=== PATIENT | female | born 1985 | race African-American/Black ===

== ENCOUNTER 2019-08-20 12:44 | Observation (INO) | payer MEDICAID ==
[~2019-08-20] VITALS: Ht 160 cm; Wt 72.6 kg
[2019-08-20] MEDS ORDERED: TERBUTALINE SULFATE 1MG/ML VIAL SUBCUT PRN (15:30)
[2019-08-20 16:32] LABS: CLARITY URINE CLEAR (CLEAR); COLOR URINE YELLOW (YELLOW); KETONES URINE TRACE (NEGATIVE); LEUKOCYTE ESTERASE URINE NEGATIVE (NEGATIVE); NITRITE URINE NEGATIVE (NEGATIVE); OCCULT BLOOD URINE NEGATIVE (NEGATIVE); PROTEIN URINE 1+ (NEGATIVE); SPECIFIC GRAVITY URINE 1.032 (1.005-1.030)
[2019-08-20] MEDS ORDERED: SODIUM CHLORIDE 0.9% 1,000 ML IV SCH (18:00)
== END 2019-08-20 18:15 | disposition home or self-care (01) ==
LOC: 8 EST LDRP 12:44
PROVIDERS: ADMIT Specialist; ATTEND Specialist
DX: O46.93 Antepartum hemorrhage, unspecified, third trimester (principal); Z3A.33 33 weeks gestation of pregnancy
CPT/HCPCS: 76805; 76818; 81003; 99281; G0378; 96360; 96361

== ENCOUNTER 2019-08-28 18:10 | Observation (INO) | payer MEDICAID ==
[~2019-08-28] VITALS: Ht 160 cm; Wt 68.0 kg
== END 2019-08-28 19:40 | disposition home or self-care (01) ==
LOC: 8 EST LDRP 18:10
PROVIDERS: ADMIT Obstetrics & Gynecology; ATTEND Obstetrics & Gynecology
DX: O62.9 Abnormality of forces of labor, unspecified (principal); Z3A.34 34 weeks gestation of pregnancy
CPT/HCPCS: 99281; G0378

== ENCOUNTER 2019-09-28 18:51 | Inpatient (IN) | payer MEDICAID ==
[~2019-09-28] VITALS: Ht 160 cm; Wt 68.0 kg
[2019-09-28] MEDS ORDERED: LACTATED RINGERS 1,000 ML IV SCH (20:05)
[2019-09-28] MEDS ORDERED: CITRIC ACID/SODIUM CITRATE SOLN 30ML UDC PO NR (20:30)
[2019-09-28] MEDS ORDERED: MORPHINE SULFATE/PF 1MG/ML 10ML AMP ONE (20:46)
[2019-09-28] MEDS ORDERED: GLYCOPYRROLATE 0.2 MG/ML 2ML VIAL ONE (20:49)
[2019-09-28] MEDS ORDERED: PHENYLEPHRINE HCL 10 MG/ML 1ML (IV VIAL) IV ONE (20:49)
[2019-09-28] MEDS ORDERED: SODIUM CHLORIDE 0.9% 10ML VIAL ONE ×3 (20:50→20:57)
[2019-09-28] MEDS ORDERED: CEFAZOLIN SODIUM 1000MG/VIAL ONE (20:50)
[2019-09-28] MEDS ORDERED: EPHEDRINE SULFATE 50MG/ML VIAL ONE (20:55)
[2019-09-28] MEDS ORDERED: OXYTOCIN 10 UNITS/ML 1ML ONE ×3 (21:04→23:31)
[2019-09-28 21:31] LABS: CHLORIDE 108 mEq/L (98-107)
[2019-09-28 21:34] LABS: BASOPHILS % 0.2 % (0.0-2.0); EOSINOPHILS % 0.6 % (0.0-5.0); HEMATOCRIT. 28.6 % (36.0-48.0); HEMOGLOBIN. 9.2 g/dL (12.0-16.0); INR 0.9; LYMPHOCYTES % 16.2 % (20.0-50.0); MEAN CORPUSCULAR HEMOGLOBIN 25.7 pg (28.0-32.0); MEAN CORPUSCULAR VOLUME 79.8 fL (81.0-99.0); MEAN PLATELET VOLUME 9.8 fl (7.4-10.4); MONOCYTES % 6.2 % (2.0-8.0); NEUTROPHILS % 76.8 % (40.0-76.0); PARTIAL THROMBOPLASTIN TIME 22.4 sec (23.4-31.0); PLATELET 213 x1000/uL (130-400); PROTHROMBIN TIME 9.4 sec (9.6-11.0); RED BLOOD CELL COUNT 3.58 mill/uL (4.2-5.4); RED CELL DISTRIBUTION WIDTH 15.4 % (11.6-14.6)
[2019-09-28 21:37] LABS: CLARITY URINE CLEAR (CLEAR); COLOR URINE YELLOW (YELLOW); KETONES URINE NEGATIVE (NEGATIVE); LEUKOCYTE ESTERASE URINE TRACE (NEGATIVE); NITRITE URINE NEGATIVE (NEGATIVE); OCCULT BLOOD URINE NEGATIVE (NEGATIVE); PROTEIN URINE TRACE (NEGATIVE); SPECIFIC GRAVITY URINE 1.027 (1.005-1.030)
[2019-09-28 21:51] LABS: *AMPHETAMINES SCREEN URINE NEGATIVE (NEGATIVE); *BARBITURATES SCREEN URINE NEGATIVE (NEGATIVE)
[2019-09-28 21:52] LABS: *BENZODIAZEPINES SCREEN URINE NEGATIVE (NEGATIVE); *COCAINE SCREEN URINE NEGATIVE (NEGATIVE); METHADONE URINE SCREEN NEGATIVE (NEGATIVE); OPIATES URINE SCREEN NEGATIVE (NEGATIVE); PHENCYCLIDINE URINE SCREEN NEGATIVE (NEGATIVE)
[2019-09-28 21:53] LABS: CANNABINOID URINE SCREEN NEGATIVE (NEGATIVE)
[2019-09-28] MEDS ORDERED: DEXTROSE 50% WATER 50ML SYRINGE IV ONE ×2 (22:22→22:30)
[2019-09-28] MEDS ORDERED: METOCLOPRAMIDE HCL 10MG/2ML VIAL ONE (22:46)
[2019-09-28] MEDS ORDERED: DEXT 5%/LR + PITOCIN 20UNITS/L 1,000 ML IV SCH (23:35)
[2019-09-28] MEDS ORDERED: KETOROLAC 60MG/2ML VIAL IM ONE (23:36)
[2019-09-28] MEDS ORDERED: HYDROMORPHONE HCL/PF 2MG/ML CPJ IM PRN (23:45)
[2019-09-28] MEDS ORDERED: IBUPROFEN 800MG TABLET PO PRN (23:45)
[2019-09-28] MEDS ORDERED: BISACODYL 10MG SUPP PR PRN (23:45)
[2019-09-28] MEDS ORDERED: RHO(D) IMMUNE GLOBULIN 300 MCG/SYR IM PRN (23:45)
[2019-09-29 02:30] VITALS: BP 120/75
[2019-09-29 03:30] VITALS: BP 117/71
[2019-09-29] MEDS ORDERED: DIPHENHYDRAMINE 50MG/ML VIAL IM PRN (05:00)
[2019-09-29] MEDS ORDERED: KETOROLAC 30MG/ML VIAL IV PRN (05:00)
[2019-09-29 06:07] LABS: BASOPHILS % 0.2 % (0.0-2.0); EOSINOPHILS % 0.2 % (0.0-5.0); HEMOGLOBIN. 8.2 g/dL (12.0-16.0); LYMPHOCYTES % 12.2 % (20.0-50.0); MEAN CORPUSCULAR HEMOGLOBIN 24.9 pg (28.0-32.0); MEAN CORPUSCULAR VOLUME 79.4 fL (81.0-99.0); MEAN PLATELET VOLUME 9.5 fl (7.4-10.4); MONOCYTES % 4.4 % (2.0-8.0); PLATELET 198 x1000/uL (130-400); RED BLOOD CELL COUNT 3.27 mill/uL (4.2-5.4); RED CELL DISTRIBUTION WIDTH 15.6 % (11.6-14.6)
[2019-09-29] MEDS: FERROUS SULFATE 325MG TABLET PO SCH ×2 (07:30→21:10)
[2019-09-29 08:20] VITALS: BP 127/82
[2019-09-29] MEDS ORDERED: ONDANSETRON HCL 4MG/2ML INJ IV PRN (08:45)
[2019-09-29 16:00] VITALS: BP 127/80
[2019-09-29 19:30] VITALS: BP 117/72
[2019-09-30 04:00] VITALS: BP 122/87
[2019-09-30 12:00] VITALS: BP 119/80
[2019-09-30] MEDS: FERROUS SULFATE 325MG TABLET PO SCH ×2 (12:00→17:30)
[2019-09-30] MEDS: IBUPROFEN 400MG TABLET PO PRN ×2 (12:56→18:50)
[2019-09-30] MEDS: ACETAMINOPHEN WITH CODEINE 300/30MG TABLET PO PRN ×2 (12:56→18:50)
[2019-09-30 17:30] VITALS: BP 110/66
[2019-09-30 20:00] VITALS: BP 120/60
[2019-10-01 04:00] VITALS: BP 107/58
[2019-10-01] MEDS: ACETAMINOPHEN WITH CODEINE 300/30MG TABLET PO PRN (04:19)
[2019-10-01] MEDS ORDERED: IBUP-2028 PO (07:20)
[2019-10-01 07:34] VITALS: BP 118/75
[2019-10-01] MEDS: FERROUS SULFATE 325MG TABLET PO SCH (08:00)
== END 2019-10-01 09:35 | disposition home or self-care (01) | DRG 540 ==
LOC: 8 EST LDRP 18:51 → OBSVTOIN 18:51 → 8EST 09-29 01:40
PROVIDERS: ADMIT Obstetrics & Gynecology; ATTEND Obstetrics & Gynecology
PROC: 10D00Z1 Extraction of Products of Conception, Low, Open Approach (ICD-10-PCS; principal; 2019-09-28)
DX: O34.211 Maternal care for low transverse scar from previous cesarean delivery (principal); D64.9 Anemia, unspecified; O99.02 Anemia complicating childbirth; O99.72 Diseases of the skin and subcutaneous tissue complicating childbirth; Z37.0 Single live birth; Z3A.38 38 weeks gestation of pregnancy; Z82.49 Family history of ischemic heart disease and other diseases of the circulatory system; Z83.3 Family history of diabetes mellitus; Z80.8 Family history of malignant neoplasm of other organs or systems
CPT/HCPCS: 36415; 80305; 81003; 82962; 86592; 86703; 86762; 86850; 86900; 87340; 88307; 99281; G0378; J0690; J1170; J1885; J2274; J2370; J2405; J2590; J2765; J3490; A4315

== ENCOUNTER 2020-04-05 11:29 | Emergency (ER) | payer MEDICAID ==
[~2020-04-05] VITALS: Ht 160 cm; Wt 50.0 kg
[~2020-04-05 11:29] MED LIST: IBUP-2028 PO
[2020-04-05] MEDS ORDERED: ACETAMINOPHEN 325MG TABLET PO ONE (12:15)
[2020-04-05 13:00] VITALS: BP 143/87
== END 2020-04-05 13:01 | disposition home or self-care (01) ==
LOC: ER 11:42
DX: U07.1 COVID-19 (principal); Z98.890 Other specified postprocedural states
CPT/HCPCS: 81025; 99283; U0003

== ENCOUNTER 2020-12-23 09:58 | Emergency (ER) | payer MEDICAID ==
[~2020-12-23] VITALS: Ht 165.1 cm; Wt 73.0 kg
[2020-12-23] MEDS ORDERED: TETANUS, DIPHTHERIA, PERTUSSIS VAC/PF 0.5ML (>7YR OLD) IM ONE (10:15)
[2020-12-23] MEDS ORDERED: ACETAMINOPHEN 325MG TABLET PO ONE (10:15)
[2020-12-23 11:09] VITALS: BP 112/70
== END 2020-12-23 11:11 | disposition home or self-care (01) ==
LOC: ER 09:58
DX: T21.01XA Burn of unspecified degree of chest wall, initial encounter (principal); T31.0 Burns involving less than 10% of body surface; T79.9XXA Unspecified early complication of trauma, initial encounter; I49.9 Cardiac arrhythmia, unspecified
CPT/HCPCS: 16020; 90471; 90715; 93005; 99283